=== PATIENT | female | born 1990 | race Two or more races ===

== ENCOUNTER 2023-11-06 20:28 | Emergency (ER) | payer MEDICAID, OTHER ==
[~2023-11-06] VITALS: Ht 170.2 cm; Wt 87.7 kg
[2023-11-06 20:45] VITALS: BP 138/85; PULSE 89; RESP 16; TEMP 98.7
[2023-11-06 21:06] LABS: Urine Epithelial Cast None Seen /hpf (<5)
[2023-11-06 21:15] LABS: Urine Bacteria FEW /hpf (None Seen); Urine Blood 1+ /uL (Negative); Urine Clarity HAZY (Clear); Urine Color Yellow (Yellow); Urine Mucus FEW (None Seen); Urine Protein, UAD Negative (Negative); Urine Specific Gravity 1.021 (1.001-1.035); Urine Urobilinogen Normal (Negative); Urine WBC 218 /hpf (0 - 5); Urine pH 5.5 (5.0-8.0)
[2023-11-06] MEDS ORDERED: NITR-52 PO (22:33)
[2023-11-06 23:07] VITALS: O2SAT 99
== END 2023-11-06 23:07 | disposition home or self-care (01) ==
LOC: ER 20:28
DX: N39.0 Urinary tract infection, site not specified (principal); Z32.02 Encounter for pregnancy test, result negative
CPT/HCPCS: 81001; 81025